=== PATIENT | female | born 1980 | race Two or more races ===

== ENCOUNTER 2017-03-04 16:52 | Emergency (ER) | payer OTHER ==
[2017-03-04 17:00] VITALS: RESP 18
[2017-03-04] MEDS ORDERED: NS 1,000 ML IV ONE (17:18)
[2017-03-04] MEDS ORDERED: HYDROmorphONE/DILAUDID 1 MG/ML INJ IVP ONE (17:18)
[2017-03-04] MEDS ORDERED: ONDANSETRON 4 MG/2 ML VIAL IVP ONE (17:18)
--- NOTE | 2017-03-04 17:36 | EDPHY ---
H & P Time Seen by Provider: 03/04/17 17:10 HPI/ROS: HPI Upper abdominal pain. 36 female by private vehicle with family. She complains of right upper quadrant abdominal pain since 3:00 p.m.. Patient describes the pain as a deep aching and cramping sensation in the right upper quadrant. She has had nausea with several episodes of nonbilious, nonbloody vomiting. No diarrhea. Last bowel movement was earlier this morning. No bloody or melenic stool. Last meal was at 12 noon. She has no prior abdominal surgical history. ROS: Constitutional: No fever, no chills. No weakness. Eyes: No discharge. No changes in vision. ENT: No sore throat. No nasal congestion or rhinorrhea. Respiratory: No cough. No shortness of breath. Cardiac: No chest pain, no palpitations. Gastrointestinal: As above, no diarrhea. Genitourinary: No hematuria. No dysuria or increased frequency with urination. Musculoskeletal: No back pain. No neck pain. No myalgias or arthralgias. Skin: No rashes. Neurological: No headache. No focal weakness or altered sensation. Past medical history: She denies any past medical history. No prescription medications. Social history: Nonsmoker. No alcohol. Here with family. Physical Exam: General Appearance: Alert, she appears uncomfortable. This patient is responding to questions appropriately and in full sentences. This patient appears well-hydrated and well-nourished. Eyes: Pupils equal and round no pallor or injection. No lid edema, erythema or injection. Respiratory: There are no retractions, lungs are clear to auscultation with good air movement bilaterally. Cardiovascular: Regular rate and rhythm. No murmur. Gastrointestinal: Abdomen is soft, mildly distended which is her habitus, right upper quadrant tenderness on palpation with rebound tenderness, no masses , bowel sounds normal. No focal tenderness at McBurney's point. Neurological: Motor sensory function is grossly intact. Cranial nerves are normal. Gait is normal. Skin: Warm and dry, no rashes. Musculoskeletal: Neck is supple and nontender. Extremities are symmetrical. All joints range without pain or impingement. Psychiatric: No agitation. No depression. Database: EKG: Imaging: Right upper quadrant ultrasound: Some polyps. But no evidence of cholecystitis or other pathology. Ductal system is normal. Results discussed with staff radiologist Dr. Paul Dominguez. Procedures: Emergency department course: IV placed. She was placed on a monitor. Medication allergies reviewed. She was started on IV normal saline with 1 L to be given over 1 hour. She was initially given 4 mg of IV Zofran and 0.5 mg of IV hydromorphone. Vital signs reviewed and are normal. Patient is afebrile. 6:40 p.m., patient re-evaluated. Resting comfortably at this time. Repeat abdominal exam she is soft with mild right upper quadrant tenderness on palpation. Results of ultrasound pending at this time. 7:45 p.m., patient re-evaluated. Resting comfortably at this time. Results of ultrasound, blood work and urine discussed with patient and family. Repeat abdominal exam she is soft, nontender nondistended. She feels comfortable going home at this time. She is tolerating fluids orally. Return to emergency department precautions were strictly reviewed with her and her family. Follow- up was discussed thoroughly. All of their questions were answered. She was discharged home in good condition. Differential Diagnosis: The differential diagnosis on this patient includes but is not limited to biliary colic, cholecystitis, nephrolithiasis, pancreatitis. Bowel obstruction , appendicitis, perforated peptic ulcer unlikely. This represents a partial list of diagnoses considered. These considerations are based on history, physical exam, past history, reassessment and diagnostic testing. Smoking Status: Never smoked Constitutional: Initial Vital Signs Temperature (C) 37.3 C 03/04/17 16:57 Heart Rate 69 03/04/17 16:57 Respiratory Rate 18 03/04/17 16:57 Blood Pressure 107/65 03/04/17 16:57 O2 Sat (%) 96 03/04/17 16:57 Allergies/Adverse Reactions: No Known Allergies Allergy (Unverified 08/13/11 00:09) Home Medications: Medication Instructions Recorded NK [No Known Home Meds] 03/04/17 Medical Decision Making - Data Points Laboratory Results: Laboratory Results 03/04/17 17:30 03/04/17 17:30 03/04/17 03/04/17 03/04/17 17:30 17:30 17:30 WBC RBC Hgb Hct MCV MCH MCHC RDW Plt Count MPV Neut % (Auto) Lymph % (Auto) [place] % (Auto) Eos % (Auto) Baso % (Auto) Nucleat RBC Rel Count Absolute Neuts (auto) Absolute Lymphs (auto) Absolute Monos (auto) Absolute Eos (auto) Absolute Basos (auto) Absolute Nucleated RBC Immature Gran % Immature Gran # Sodium 139 mEq/L mEq/L (134-144) Potassium 4.1 mEq/L mEq/L (3.5-5.2) Chloride 105 mEq/L mEq/L (97-110) Carbon Dioxide 22 mEq/l mEq/l (22-31) Anion Gap 12 mEq/L mEq/L (8-16) BUN 12 mg/dL mg/dL (7-23) Creatinine 0.8 mg/dL mg/dL (0.6-1.0) Estimated GFR > 60 Glucose 84 mg/dL mg/dL (70-100) Calcium 9.9 mg/dL mg/dL (8.5-10.4) Total Bilirubin 0.4 mg/dL mg/dL (0.1-1.4) Conjugated Bilirubin 0.2 mg/dL mg/dL (0.0-0.5) Unconjugated Bilirubin 0.2 mg/dL mg/dL (0.0-1.1) AST 20 IU/L IU/L (14-46) ALT 24 IU/L IU/L (9-52) Alkaline Phosphatase 62 IU/L IU/L (38-126) Total Protein 8.0 g/dL g/dL (6.3-8.2) Albumin 4.4 g/dL g/dL (3.5-5.0) Lipase 128 IU/L IU/L (23-300) Beta HCG, Qual NEGATIVE Urine Color YELLOW Urine Appearance HAZY Urine pH 6.0 (5.0-7.5) Ur Specific [place] 1.019 (1.002-1.030) Urine Protein NEGATIVE (NEGATIVE) Urine Ketones NEGATIVE (NEGATIVE) Urine Blood 1+ H (NEGATIVE) Urine Nitrate NEGATIVE (NEGATIVE) Urine Bilirubin NEGATIVE (NEGATIVE) Urine Urobilinogen NEGATIVE EU EU (0.2-1.0) Ur Leukocyte Esterase NEGATIVE (NEGATIVE) Urine RBC 3-5 /hpf H /hpf (0-3) Urine WBC 1-3 /hpf /hpf (0-3) Ur Epithelial Cells TRACE /lpf /lpf (NONE-1+) Calcium Oxalate Crystal PRESENT /hpf /hpf (NONE-1+) Urine Mucus TRACE /lpf /lpf (NONE-1+) Urine Glucose NEGATIVE (NEGATIVE) 03/04/17 17:30 WBC 7.71 10^3/uL 10^3/uL (3.80-9.50) RBC 4.53 10^6/uL 10^6/uL (4.18-5.33) Hgb 13.6 g/dL g/dL (12.6-16.3) Hct 40.0 % % (38.0-47.0) MCV 88.3 fL fL (81.5-99.8) MCH 30.0 pg pg (27.9-34.1) MCHC 34.0 g/dL g/dL (32.4-36.7) RDW 12.8 % % (11.5-15.2) Plt Count 335 10^3/uL 10^3/uL (150-400) MPV 9.2 fL fL (8.7-11.7) Neut % (Auto) 53.8 % % (39.3-74.2) Lymph % (Auto) 36.4 % % (15.0-45.0) [place] % (Auto) 8.3 % % (4.5-13.0) Eos % (Auto) 0.9 % % (0.6-7.6) Baso % (Auto) 0.5 % % (0.3-1.7) Nucleat RBC Rel Count 0.0 % % (0.0-0.2) Absolute Neuts (auto) 4.14 10^3/uL 10^3/uL (1.70-6.50) Absolute Lymphs (auto) 2.81 10^3/uL 10^3/uL (1.00-3.00) Absolute Monos (auto) 0.64 10^3/uL 10^3/uL (0.30-0.80) Absolute Eos (auto) 0.07 10^3/uL 10^3/uL (0.03-0.40) Absolute Basos (auto) 0.04 10^3/uL 10^3/uL (0.02-0.10) Absolute Nucleated RBC 0.00 10^3/uL 10^3/uL (0-0.01) Immature Gran % 0.1 % % (0.0-1.1) Immature Gran # 0.01 10^3/uL 10^3/uL (0.00-0.10) Sodium Potassium Chloride Carbon Dioxide Anion Gap BUN Creatinine Estimated GFR Glucose Calcium Total Bilirubin Conjugated Bilirubin Unconjugated Bilirubin AST ALT Alkaline Phosphatase Total Protein Albumin Lipase Beta HCG, Qual Urine Color Urine Appearance Urine pH Ur Specific [place] Urine Protein Urine Ketones Urine Blood Urine Nitrate Urine Bilirubin Urine Urobilinogen Ur Leukocyte Esterase Urine RBC Urine WBC Ur Epithelial Cells Calcium Oxalate Crystal Urine Mucus Urine Glucose Medications Given: Discontinued Medications Hydromorphone HCl (Dilaudid) 0.5 mg IVP EDNOW ONE Stop: 03/04/17 17:19 Last Admin: 03/04/17 17:39 Dose: 0.5 mg Sodium Chloride (Ns) 1,000 mls @ 0 mls/hr IV EDNOW ONE; Wide Open PRN Reason: Protocol Stop: 03/04/17 17:19 Last Admin: 03/04/17 17:30 Dose: 1,000 mls Ondansetron HCl (Zofran) 4 mg IVP EDNOW ONE Stop: 03/04/17 17:19 Last Admin: 03/04/17 17:39 Dose: 4 mg Departure - Departure Disposition: Home, Routine, Self-Care Clinical Impression: Upper abdominal pain Condition: Good Instructions: Abdominal Pain (ED) Additional Instructions: Read and follow provided instructions. Follow-up with your primary care physician on Monday for re-evaluation as discussed. Ibuprofen dosin mg every 6 hours with meals for the next 3 days only. Take only as needed for pain. Return to the emergency department immediately for worsening pain, vomiting, fever or other serious concerns. Referrals: UNKNOWN,DOCTOR [Other] - As per Instructions [facility],. [Clinic] - As per Instructions
[2017-03-04 17:38] LABS: % IMMATURE GRANULYOCYTES 0.1 % (0.0-1.1); ABSOLUTE IMMATURE GRANULOCYTES 0.01 10^3/uL (0.00-0.10); ADD DIFF? NO; ADD MORPH? NO; ADD SCAN? NO; ATYPICAL LYMPHOCYTE FLAG 10 (0-99); FRAGMENT RBC FLAG 0 (0-99); HEMOGLOBIN 13.6 g/dL (12.6-16.3); LEFT SHIFT FLG 0 (0-99); LIPEMIA HEMOLYSIS FLAG 90 (0-99); MEAN CELL VOLUME 88.3 fL (81.5-99.8); MEAN PLATELET VOLUME 9.2 fL (8.7-11.7); PLATELET CLUMPS FLAG 0 (0-99); PLATELET COUNT 335 10^3/uL (150-400); RED BLOOD CELL COUNT 4.53 10^6/uL (4.18-5.33); RED CELL DISTRIBUTION WIDTH 12.8 % (11.5-15.2)
[2017-03-04 17:50] LABS: ALANINE AMINOTRANSFERASE 24 IU/L (9-52); ALBUMIN 4.4 g/dL (3.5-5.0); ALKALINE PHOSPHATASE 62 IU/L (38-126); ANION GAP 12 mEq/L (8-16); ASPARTATE AMINOTRANSFERASE 20 IU/L (14-46); BILIRUBIN,TOTAL 0.4 mg/dL (0.1-1.4); BILIRUBIN-CONJUGATED 0.2 mg/dL (0.0-0.5); BILIRUBIN-UNCONJUGATED 0.2 mg/dL (0.0-1.1); CALCIUM 9.9 mg/dL (8.5-10.4); CARBON DIOXIDE 22 mEq/l (22-31); CHLORIDE 105 mEq/L (97-110); CREATININE 0.8 mg/dL (0.6-1.0); GLOMERULAR FILTRATION RATE > 60; GLUCOSE 84 mg/dL (70-100); POTASSIUM 4.1 mEq/L (3.5-5.2); SODIUM 139 mEq/L (134-144)
[2017-03-04 19:01] LABS: COLOR YELLOW; LEUKOCYTE ESTERASE,URINE NEGATIVE (NEGATIVE); NITRITE,URINE NEGATIVE (NEGATIVE)
[2017-03-04 19:06] LABS: MUCUS TRACE /lpf (NONE-1+)
[2017-03-04] MEDS ORDERED: IOPAMIDOL (ISOVUE-300) 100 ML BTL ONE (19:49)
[2017-03-04 20:20] VITALS: BP 103/68; PULSE 66; TEMP 99; O2SAT 94
== END 2017-03-04 20:19 | disposition home or self-care (01) ==
DX: R10.11 Right upper quadrant pain (principal); E86.9 Volume depletion, unspecified
CPT/HCPCS: 96374; J1170; J2405; Q9967